=== PATIENT | female | born 1960 | race Caucasian/White ===

== ENCOUNTER → 2017-06-02 | Outpatient (CLI) | payer BC ==
[~2017-06-02] MED LIST: BACTRIM DS 8001 TAB PO; CEPHALEXIN500 M1 PO; EFFEXOR100 MG PO; TYLENOL SINUS C1 TAB PO
== END ==
LOC: MC.RAD 09:29
DX: Z12.31 Encounter for screening mammogram for malignant neoplasm of breast (principal)

== ENCOUNTER → 2019-04-17 | Outpatient (CLI) | payer BC | LOC: MC.RAD 10:15 | DX: Z12.31 Encounter for screening mammogram for malignant neoplasm of breast (principal) ==

== ENCOUNTER → 2019-04-20 | Outpatient (CLI) | payer BC | LOC: COL.RAD 13:16 | DX: D17.21 Benign lipomatous neoplasm of skin and subcutaneous tissue of right arm (principal); L72.0 Epidermal cyst ==

== ENCOUNTER 2020-05-23 08:31 | Day surgery (SDC) | payer BC ==
[~2020-05-23] VITALS: Ht 172.7 cm; Wt 77.3 kg
[2020-05-23 09:04] VITALS: BP 128/82; PULSE 75; TEMP 97.3
[2020-05-23] MEDS ORDERED: STOOL SOFTENER100 M2 PO (09:16)
[2020-05-23] MEDS ORDERED: [UNRECOGNIZED DRUG - OTHER] PO (09:16)
[2020-05-23] MEDS ORDERED: EFFEXOR-XR150 MG PO (09:17)
[2020-05-23] MEDS ORDERED: TYLENOL PM EXTR1 TA1 PO (09:17)
[2020-05-23 10:20] VITALS: BP 142/82; PULSE 71
--- NOTE | 2020-05-23 10:20 | NUR ---
Patient returns to [facility] [address] per cart and transfers from cart to recliner with one person assist. IV fluids infusing. Site is free of redness. Temp 97.9 and room air sats 100%. Dr. Canales in the room and talks with the patient. All questions answered. Given water and Sprite to drink.
[2020-05-23 10:35] VITALS: BP 140/82; PULSE 67
--- NOTE | 2020-05-23 10:35 | NUR ---
Tolerates liquids well. Given crackers to eat.
[2020-05-23 10:50] VITALS: BP 143/77; PULSE 68
--- NOTE | 2020-05-23 10:50 | NUR ---
IV discontinued and site is free of redness. Patient dresses self. Spouse called for ride home.
--- NOTE | 2020-05-23 10:57 | NUR ---
Dismissal instructions given and signed. All questions answered.
[2020-05-23 11:00] VITALS: BP 139/89; PULSE 74
--- NOTE | 2020-05-23 11:03 | NUR ---
Dismissed to home driven by spouse and assisted into car by this RN with instructions in hand.
== END 2020-05-23 11:03 | disposition home or self-care (01) ==
LOC: SDCO 08:31
DX: Z12.11 Encounter for screening for malignant neoplasm of colon (principal); D12.3 Benign neoplasm of transverse colon; Z86.010 Personal history of colon polyps; K64.0 First degree hemorrhoids; K62.89 Other specified diseases of anus and rectum
CPT/HCPCS: J0360; J2704; J7030